=== PATIENT | female | born 1970 | race African-American/Black ===

== ENCOUNTER 2020-08-19 01:56 | Emergency (ER) | payer OTHER ==
[2020-08-19 02:05] VITALS: TEMP 98.8; BMI 43.9
[2020-08-19] MEDS ORDERED: LORazepam 2 MG/ML SDV VIAL IM STA (02:21)
[2020-08-19] MEDS ORDERED: LORazepam 2 MG/ML SDV VIAL ONE (02:28)
[2020-08-19 03:57] VITALS: BP 120/71; PULSE 78
== END 2020-08-19 03:55 | disposition home or self-care (01) ==
LOC: JER 01:56
PROC: 3E023GC Introduction of Other Therapeutic Substance into Muscle, Percutaneous Approach (ICD-10-PCS; principal; 2020-08-19)
DX: F10.929 Alcohol use, unspecified with intoxication, unspecified (principal)
CPT/HCPCS: 82962; 99284-25